=== PATIENT | female | born 2005 | race Hispanic/Latino ===

== ENCOUNTER → 2023-08-04 | Outpatient (CLI) | payer OTHER, MEDICAID ==
[~2023-08-04] MED LIST: GADOTERATE MEGLUMINE 10 MMOL/20 ML VIAL IV ONE
== END | disposition home or self-care (01) ==
LOC: RAH 07-28 08:17
PROVIDERS: ATTEND Internal Medicine Gastroenterology
DX: K83.8 Other specified diseases of biliary tract (principal)
CPT/HCPCS: 74183; A9575

== ENCOUNTER → 2023-08-20 | Outpatient (CLI) | payer OTHER, MEDICAID ==
[~2023-08-20] MED LIST changes: -GADOTERATE MEGLUMINE 10 MMOL/20 ML VIAL IV ONE; +IOHEXOL-350 75 ML VIAL IV ONE
== END | disposition home or self-care (01) ==
LOC: RAH 10:38
PROVIDERS: ATTEND Internal Medicine Gastroenterology
DX: N13.30 Unspecified hydronephrosis (principal); N28.89 Other specified disorders of kidney and ureter; R83.9 Unspecified abnormal finding in cerebrospinal fluid; R93.3 Abnormal findings on diagnostic imaging of other parts of digestive tract; R93.422 Abnormal radiologic findings on diagnostic imaging of left kidney
CPT/HCPCS: 74160; Q9967